=== PATIENT | male | born 1990 | race Two or more races ===

== ENCOUNTER 2021-06-13 18:35 | Emergency (ER) | payer OTHER ==
[2021-06-13 19:29] LABS: BASOPHIL 0.9 % (0-2); EOSINOPHIL 4.7 % (0-5); HCT 43.6 % (42.0-52.0); HGB 13.1 g/dl (13.2-18.0); LYMPHOCYTE 18.5 % (15-48); MCH 19.4 pg (25.0-31.0); MCV 64.4 fL (78.0-100.0); MONOCYTE 7.7 % (0-12); MPV 10.1 fL (6.0-9.5); NEUTROPHIL 66.9 % (41-80); NRBC 0; PLT 277 K/uL (150-400); RBC 6.77 M/uL (4.70-6.00); RDW 17.8 % (11.5-14.0); WBC 11.3 K/uL (4.0-10.5)
[2021-06-13 19:54] LABS: ALBUMIN 3.7 g/dL (3.4-5.0); BILIRUBIN - TOTAL 0.3 mg/dL (0.2-1.0); BUN/CREAT RATIO (CALC) 24.7 RATIO; CREATININE 0.81 mg/dL (0.67-1.17); GLOBULIN (CALCULATION) 3.8 g/dL; POTASSIUM 4.1 mmol/L (3.5-5.1); TOTAL PROTEIN 7.5 g/dL (6.4-8.2)
[2021-06-13] MEDS ORDERED: CYCLOBENZAPRINE10 MG PO (22:09)
== END 2021-06-13 23:09 | disposition home or self-care (01) ==
LOC: FER 18:35
PROVIDERS: Physician Assistant
DX: R07.9 Chest pain, unspecified (principal); Z28.311 Partially vaccinated for COVID-19
CPT/HCPCS: 36415; 71045; 80053; 83880; 84484; 85025; 85379; 93005